=== PATIENT | female | born 1960 ===

== ENCOUNTER 2022-03-05 16:38 | Emergency (ER) | payer BC ==
[2022-03-05] MEDS ORDERED: Metoclopramide 10 MG/2 ML SDV IM ONE (17:00)
[2022-03-05] MEDS ORDERED: Metoclopramide 10 MG/2 ML SDV ONE (17:07)
[2022-03-05] MEDS ORDERED: Metoclopramide 10 MG Tab ONE ×2 (17:27→17:30)
== END 2022-03-05 17:38 | disposition home or self-care (01) ==
LOC: LB.ED 16:38
DX: R11.0 Nausea (principal); I10 Essential (primary) hypertension; E03.9 Hypothyroidism, unspecified; F17.210 Nicotine dependence, cigarettes, uncomplicated; Z79.899 Other long term (current) drug therapy
CPT/HCPCS: 96372; 99282; 99283; A9270; J2765